=== PATIENT | female | born 1955 | race Caucasian/White ===

== ENCOUNTER 2016-04-12 21:46 | Emergency (ER) | payer MEDICARE, MEDICAID ==
--- NOTE | 2016-04-12 21:57 | Emergency Department Record ---
History of Present Illness - General Stated Complaint: HEAD/NECK PAIN Time Seen by Provider: 04/12/16 21:50 Source: Patient, EMS Mode of Arrival: EMS Limitations: No limitations - History of Present Illness Initial Comments: 61 yo female presents with neck and back pain. No report of recent falls or injury. She reports as does EMS that she has had many months of chronic neck and back pain. No recent illness. No cough or congestion. No weakness. She denies any numbness. She denies an history of surgery. No vomiting or diarrhea. [facility] of no trauma, chronic in nature and not recent illness. MD Complaint: Back pain, Other (Neck pain) -: Month(s) Place: Home Radiation: None Severity: Moderate Quality: Aching Consistency: Constant Improves With: Immobilization, Movement Worsens With: Movement Context: Other (chronic pain) - Related Data Home Medications Medication Instructions Recorded Confirmed Last Taken Triamterene/Hydrochlorothiazid 75 mg PO DAILY 12/30/13 12/28/15 1 Day Ago [Maxzide 37.5 mg-25 mg Tablet] Acetaminophen [Arthritis Pain] 650 mg PO Q12H PRN 10/16/14 12/28/15 1 Day Ago Amlodipine Besylate [Norvasc] 10 mg PO DAILY 11/14/15 12/28/15 1 Day Ago Cholecalciferol (Vitamin D3) 2,000 unit PO DAILY 11/14/15 12/28/15 1 Day Ago [Vitamin D3] Divalproex Sodium [Depakote] 750 mg PO DAILY 11/14/15 12/28/15 1 Day Ago Gabapentin [Neurontin] 300 mg PO BID 11/14/15 12/28/15 1 Day Ago Metoprolol Succinate 12.5 mg PO DAILY 11/14/15 12/28/15 1 Day Ago Olanzapine 10 mg PO DAILY 11/14/15 12/28/15 1 Day Ago Trazodone HCl 100 mg PO QHS 11/14/15 12/28/15 1 Day Ago Olanzapine [Olanzapine Odt] 5 mg PO QAM 11/22/15 11/22/15 1 Day Ago Allergies Allergy/AdvReac Type Severity Reaction Status Date / Time No Known Drug Allergies Allergy Verified 12/28/15 14:46 Review of Systems Constitutional: Denies: Chills, Fever, Weakness Eyes: Denies: Eye discharge ENT: Denies: Congestion Respiratory: Denies: Cough Cardiovascular: Denies: Chest pain, Palpitations, Syncope Endocrine: Denies: Fatigue Gastrointestinal: Denies: Abdominal pain, Diarrhea, Nausea, Vomiting Genitourinary: Denies: Dysuria Musculoskeletal: Reports: As per HPI, Arthralgia, Back pain, Myalgia, Neck pain Skin: Denies: Bruising, Change in color, Rash Neurological: Denies: Confusion, Headache Psychiatric: Denies: Anxiety Hematological/Lymphatic: Denies: Blood Clots, Easy bleeding, Easy bruising, Swollen glands Past Medical History - SOCIAL HISTORY Smoking Status: Current every day smoker Drug Use: None - RESPIRATORY Hx Respiratory Disorders: Yes Hx Bronchitis: Yes Hx COPD: Yes - CARDIOVASCULAR Hx Cardio Disorders: Yes Hx Heart Attack: Yes (x 2) Hx Hypertension: Yes - NEURO Hx Neuro Disorders: Yes Comment:: legally blind - GI Hx GI Disorders: No - Hx Genitourinary Disorders: Yes Comment:: urinary incont - ENDOCRINE Hx Endocrine Disorders: No - MUSCULOSKELETAL Hx Musculoskeletal Disorders: Yes Hx Arthritis: Yes - PSYCH Hx Psych Problems: Yes Comment:: schizophrenia - HEMATOLOGY/ONCOLOGY Hx Hematology/Oncology Disorders: No Family Medical History Hx Cancer: Grandparents Physical Exam - General General Appearance: Alert, Oriented x3, Cooperative Limitations: No limitations - Head Head exam: Atraumatic, Normocephalic, Normal inspection - Eye Eye exam: Normal appearance, PERRL. negative: Conjunctival injection, Periorbital swelling - ENT ENT exam: Normal exam, Mucous membranes moist Ear exam: Normal external inspection Nasal Exam: Normal inspection Mouth exam: Normal external inspection Teeth exam: Normal inspection Throat exam: Normal inspection - Neck Neck exam: Normal inspection, Full ROM, Tenderness (mild diffuse, no focal, chronic neck/head position is flexed). negative: Lymphadenopathy, Meningismus - Respiratory Respiratory exam: Normal lung sounds bilaterally. negative: Respiratory distress - Cardiovascular Cardiovascular Exam: Regular rate, Normal rhythm, Normal heart sounds - GI/Abdominal GI/Abdominal exam: Soft. negative: Tenderness - Rectal Rectal exam: Deferred - exam: Deferred - Extremities Extremities exam: Normal inspection, Full ROM, Normal capillary refill. negative: Tenderness - Back Back exam: Reports: Normal inspection, Full ROM, Other (no rash). Denies: CVA tenderness (R), CVA tenderness (L), Muscle spasm, Paraspinal tenderness, Tenderness, Vertebral tenderness - Neurological Neurological exam: Alert, Normal gait, Oriented X3 - Psychiatric Psychiatric exam: Normal affect, Normal mood. negative: Agitated, Anxious - Skin Skin exam: Dry, Intact, Normal color, Warm Course - Reevaluation(s) Reevaluation #1: the patient was seen on arrival with EMS History taken from EMS as well 04/12/16 21:57 Reevaluation #2: vitals reviewed No acute changes 04/12/16 21:57 Reevaluation #3: UA is negative for any infection XR of the C spine were reviewed. Awaiting final report 04/12/16 22:29 Reevaluation #4: XR demonstrated degenerative changes 04/12/16 22:47 Disposition Disposition: Discharge Clinical Impression: Neck pain, chronic Lumbar back pain Qualifiers: Chronicity: chronic Back pain laterality: unspecified Sciatica presence: without sciatica Qualified Code(s): M54.5 - Low back pain Disposition: Home, Self-Care Condition: (1) Good Instructions: Cervical Spine Strain (ED) Additional Instructions: Call your doctor to be seen first of the week for your neck and back pain Time of Disposition: 22:48
[2016-04-12 22:13] LABS: URINE APPEARANCE CLEAR; URINE BILIRUBIN NEGATIVE (NEGATIVE); URINE BLOOD NEGATIVE (NEGATIVE); URINE COLOR YELLOW; URINE GLUCOSE (UA) NEGATIVE (NEGATIVE); URINE KETONE NEGATIVE (NEGATIVE); URINE LEUKOCYTE ESTERASE NEGATIVE (NEGATIVE); URINE NITRITE NEGATIVE (NEGATIVE); URINE PROTEIN NEGATIVE (NEGATIVE); URINE UROBILINOGEN 0.2 E.U./dL (0.20 - 1.00)
--- NOTE | 2016-04-18 10:16 | RADIOLOGY REPORT ---
EXAM: CERVICAL SPINE HISTORY: INJURY. TECHNIQUE: AP, lateral, and open mouth views of the cervical spine were performed. FINDINGS: There is severe osteopenia. There is minimal anterolisthesis of C4 in respect to C5. The lateral masses are well aligned. There is multilevel facet arthropathy. IMPRESSION: SEVERE OSTEOPENIA WITH MULTILEVEL FACET ARTHROPATHY. THERE IS ANTEROLISTHESIS OF C4 IN RESPECT TO C5. THIS IS LIKELY ON A DEGENERATIVE BASIS. J[facility]BER: [id number] [facility]
== END 2016-04-12 23:04 | disposition home or self-care (01) ==
LOC: ER 21:46
DX: M54.2 Cervicalgia (principal); G89.29 Other chronic pain; M54.5 Low back pain
CPT/HCPCS: 72040; 81003; 99283; 99284

== ENCOUNTER 2016-06-14 09:05 | Emergency (ER) | payer MEDICARE, MEDICAID ==
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
[2016-06-14 09:42] LABS: BASO % 0.4 % (0-6); EOS % 3.1 % (0-6); GRAN % 47.1 % (47-80); HEMATOCRIT 40.2 % (35.0-47.0); HEMOGLOBIN 13.3 gm/dl (11.6-16.0); LYMPH % 35.5 % (16-45); MEAN CELL VOLUME 95.9 fl (81-97); MEAN CORPUSCULAR HEMOGLOBIN 31.7 pg (27-33); MEAN CORPUSCULAR HGB CONC 33.1 g/dl (32-36); MEAN PLATELET VOLUME 9.5 fl (7.4-10.4); MONO % 13.9 % (0-9); PLATELET COUNT 241 K/uL (130-400); RED BLOOD COUNT 4.19 M/uL (3.80-5.40); RED CELL DISTRIBUTION WIDTH 13.8 % (11.5-14.5); WHITE BLOOD COUNT W/O DIFF 5.6 K/uL (4.2-12.2)
[2016-06-14 09:52] LABS: ALB/GLOB RATIO 1.1 (1.1-1.8); ALBUMIN 3.9 gm/dL (3.5-5.0); ALKALINE PHOSPHATASE 68 U/L (38-126); ALT/SGPT 27 U/L (9-52); AST/SGOT 24 U/L (14-36); BILIRUBIN,TOTAL 0.35 mg/dL (0.2-1.3); BLOOD UREA NITROGEN 25 mg/dL (7-17); CREATININE 0.9 mg/dL (0.52-1.04); EST GLOMERULAR FILTRATION RATE > 60 ml/min; GLUCOSE,RANDOM 71 mg/dL (70-110); TOTAL PROTEIN 7.6 gm/dL (6.3-8.2)
[2016-06-14 09:58] LABS: VALPROIC ACID (DEPAKENE) 56.5 ug/mL (50.0-100.0)
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
== END 2016-06-14 11:10 | disposition home or self-care (01) ==
LOC: ER 09:05
DX: S00.12XA Contusion of left eyelid and periocular area, initial encounter (principal); F20.9 Schizophrenia, unspecified; I10 Essential (primary) hypertension; J44.9 Chronic obstructive pulmonary disease, unspecified; I25.2 Old myocardial infarction; F17.210 Nicotine dependence, cigarettes, uncomplicated; W05.0XXA Fall from non-moving wheelchair, initial encounter; Y92.129 Unspecified place in nursing home as the place of occurrence of the external cause
CPT/HCPCS: 70450; 80053; 80164; 85025; 99283; 99284

== ENCOUNTER 2016-07-05 11:31 | Emergency (ER) | payer MEDICARE, MEDICAID ==
[2016-07-05] MEDS ORDERED: 0.9 % SODIUM CHLORIDE 1,000 ML BAG IV ONE (11:44)
--- NOTE | 2016-07-05 11:52 | Emergency Department Record ---
History of Present Illness - General Chief complaint: Fatigue and Weakness Stated complaint: NOT EATING OR DRINKING Time Seen by Provider: 07/05/16 11:42 Source: Patient, EMS Mode of Arrival: EMS Limitations: No limitations - History of Present Illness Initial comments: The patient is here from an [facility] home due to generalized weakness for 2 days. The caregiver that is here states the patient has not been eating or drinking for 2 days. The patient has an extensive psych. hx and is on multiple medicines to control her behavior. The caregiver does not know if any have been adjusted recently. MD Complaint: Generalized weakness Onset/Timin -: Days(s) Location: Generalized Severity: Mild Improves with: None Worsens with: None Associated Symptoms: Loss of appetite - [place] Coma Scale Eye Response: (3) Open to voice Motor Response: (6) Obeys commands Verbal Response: (4) Confused conversation Felipe Total: 13 - Related Data Home Medications Medication Instructions Recorded Confirmed Last Taken Triamterene/Hydrochlorothiazid 75 mg PO DAILY 12/30/13 07/05/16 06/14/16 [Maxzide 37.5 mg-25 mg Tablet] Acetaminophen [Arthritis Pain] 650 mg PO Q12H PRN 10/16/14 07/05/16 06/14/16 Amlodipine Besylate [Norvasc] 10 mg PO DAILY 11/14/15 07/05/16 06/14/16 Cholecalciferol (Vitamin D3) 2,000 unit PO DAILY 11/14/15 07/05/16 06/14/16 [Vitamin D3] Divalproex Sodium [Depakote] 750 mg PO DAILY 11/14/15 07/05/16 06/14/16 Gabapentin [Neurontin] 300 mg PO BID 11/14/15 07/05/16 06/14/16 Metoprolol Succinate 12.5 mg PO DAILY 11/14/15 07/05/16 06/14/16 Olanzapine 10 mg PO DAILY 11/14/15 07/05/16 06/14/16 Trazodone HCl 100 mg PO QHS 11/14/15 07/05/16 06/14/16 Olanzapine [Olanzapine Odt] 5 mg PO QAM 11/22/15 07/05/16 06/14/16 Allergies Allergy/AdvReac Type Severity Reaction Status Date / Time No Known Drug Allergies Allergy Verified 07/05/16 11:38 Travel Screening - Travel/Exposure Within Last 30 Days Have you traveled within the last 30 days?: No Review of Systems Constitutional: Denies: Chills, Fever Eyes: Denies: Eye discharge ENT: Denies: Congestion Respiratory: Denies: Cough, Dyspnea Past Medical History - SOCIAL HISTORY Smoking Status: Current every day smoker Alcohol Use: None Drug Use: None - RESPIRATORY Hx Respiratory Disorders: Yes Hx Bronchitis: Yes Hx COPD: Yes - CARDIOVASCULAR Hx Cardio Disorders: Yes Hx Heart Attack: Yes (x 2) Hx Hypertension: Yes - NEURO Hx Neuro Disorders: Yes Comment:: legally blind - GI Hx GI Disorders: No - Hx Genitourinary Disorders: Yes Comment:: urinary incont - ENDOCRINE Hx Endocrine Disorders: No - MUSCULOSKELETAL Hx Musculoskeletal Disorders: Yes Hx Arthritis: Yes - PSYCH Hx Psych Problems: Yes Comment:: schizophrenia - HEMATOLOGY/ONCOLOGY Hx Hematology/Oncology Disorders: No Family Medical History Any Significant Family History?: Yes Hx Cancer: Grandparents Physical Exam - General General Appearance: No acute distress - Head Head exam: Normal inspection - ENT Throat exam: negative: Normal inspection (slightl dry mucosa.) - Neck Neck exam: Normal inspection, Full ROM. negative: Tenderness - Respiratory Respiratory exam: Normal lung sounds bilaterally. negative: Respiratory distress - Cardiovascular Cardiovascular Exam: Regular rate, Normal rhythm, Normal heart sounds - Extremities Extremities exam: negative: Normal inspection - Neurological Neurological exam: negative: Alert, Motor sensory deficit, Oriented X3 (The patient is sleepy but arousable to voice. She is complaining about her "scars" but will not answer questions.) Course Vital Signs 07/05/16 11:34 Temperature 97.1 F L Pulse Rate 63 Respiratory 20 Rate Blood Pressure 119/76 Pulse Ox 95 - Reevaluation(s) Reevaluation #1: The patient is doing much better now. She is up awake and alert and went to use the bedside cammode normally. I did explain to the caregiver that I do believe the patient may be slightly overmedicated and will need her psych. medicines slightly lowered. 07/05/16 12:50 Medical Decision Making - Data Complexity MDM Data: Labs Ordered and/or Reviewed, X-Ray Ordered and/or Reviewed - Lab Data Result diagrams: 07/05/16 11:10 07/05/16 11:10 - Radiology Data Radiology results: Report reviewed (Head CT: No acute disease process per Rad.) Disposition Disposition: Discharge Clinical Impression: Weakness Disposition: Home, Self-Care Condition: (1) Good Instructions: Fatigue (ED) Additional Instructions: Please have the patient see her PCP to adjust her psych medicines. Please push PO fluids. Please return to the ER for any problems. Forms: Patient Portal Access Time of Disposition: 12:52
[2016-07-05 11:55] LABS: HEMATOCRIT 41.7 % (35.0-47.0); HEMOGLOBIN 13.7 gm/dl (11.6-16.0); MEAN CELL VOLUME 95.4 fl (81-97); MEAN CORPUSCULAR HEMOGLOBIN 31.4 pg (27-33); MEAN CORPUSCULAR HGB CONC 32.9 g/dl (32-36); MEAN PLATELET VOLUME 10.4 fl (7.4-10.4); PLATELET COUNT 193 K/uL (130-400); RED BLOOD COUNT 4.37 M/uL (3.80-5.40); RED CELL DISTRIBUTION WIDTH 13.3 % (11.5-14.5); WHITE BLOOD COUNT W/O DIFF 5.7 K/uL (4.2-12.2)
[2016-07-05 12:07] LABS: PLATELET ESTIMATE NORMAL (NORMAL)
[2016-07-05 12:12] LABS: ANION GAP 9.4 (7-16); BILIRUBIN,TOTAL 0.61 mg/dL (0.2-1.3); CARBON DIOXIDE 35.6 mmol/L (22-30); TOTAL PROTEIN 8.2 gm/dL (6.3-8.2)
== END 2016-07-05 13:40 | disposition home or self-care (01) ==
LOC: ER 11:31
DX: R53.1 Weakness (principal); R41.82 Altered mental status, unspecified; J44.9 Chronic obstructive pulmonary disease, unspecified; I10 Essential (primary) hypertension; I25.2 Old myocardial infarction; F20.9 Schizophrenia, unspecified; F17.200 Nicotine dependence, unspecified, uncomplicated
CPT/HCPCS: 70450; 80053; 80164; 85027; 96360; 99284; J7030

== ENCOUNTER 2016-08-30 18:55 | Emergency (ER) | payer MEDICARE, MEDICAID ==
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
== END 2016-08-30 20:53 | disposition home or self-care (01) ==
LOC: ER 18:55
DX: S16.1XXA Strain of muscle, fascia and tendon at neck level, initial encounter (principal); Y08.89XA Assault by other specified means, initial encounter; Y93.9 Activity, unspecified; Y92.009 Unspecified place in unspecified non-institutional (private) residence as the place of occurrence of the external cause; F17.200 Nicotine dependence, unspecified, uncomplicated; F20.9 Schizophrenia, unspecified
CPT/HCPCS: 70450; 72125; 99283

== ENCOUNTER 2017-04-04 13:48 | Emergency (ER) | payer MEDICARE, MEDICAID ==
--- NOTE | 2017-04-04 14:35 | Emergency Department Record ---
History of Present Illness - General Chief Complaint: Altered Mental Status Stated Complaint: ALTERED MENTAL STATE Time Seen by Provider: 04/04/17 14:16 Source: Patient Mode of Arrival: EMS Limitations: No limitations - History of Present Illness Initial Comments: The patient is here from foster care due to being more sleepy than normal. She lives at the [facility] assisted living home and a caregiver that is here today states she has not been herself. He states she usually is able to hold her own coffee cup but today has been dropping it and then wants to go to sleep. There is no hx of trauma, injury, fall, recent illness, or fever. The caregiver denies any recent medicine change. She has had similar issues in the past when she has had side effects of her multiple medicines. MD Complaint: Decreased responsiveness Onset/Timin -: Days(s) Consistency: Constant - [place] Coma Scale Eye Response: (4) Open spontaneously Motor Response: (6) Obeys commands Verbal Response: (5) Oriented Felipe Total: 15 - Related Data Home Medications Medication Instructions Recorded Confirmed Last Taken Escitalopram Oxalate [Lexapro] 20 mg PO 04/04/17 04/04/17 Allergies Allergy/AdvReac Type Severity Reaction Status Date / Time No Known Drug Allergies Allergy Verified 08/30/16 19:04 Travel Screening - Travel/Exposure Within Last 30 Days Have you traveled within the last 30 days?: No - Travel/Exposure Within Last Year Have you traveled outside the [place] in the last year?: No - Additonal Travel Details Have you been exposed to anyone with a communicable illness?: No Review of Systems Constitutional: Denies: Chills, Fever Eyes: Denies: Eye discharge ENT: Denies: Congestion Respiratory: Denies: Cough, Dyspnea Past Medical History - SOCIAL HISTORY Smoking Status: Current every day smoker Alcohol Use: None Drug Use: None - RESPIRATORY Hx Respiratory Disorders: Yes Hx Bronchitis: Yes Hx COPD: Yes - CARDIOVASCULAR Hx Cardio Disorders: Yes Hx Heart Attack: Yes (x 2) Hx Hypertension: Yes - NEURO Hx Neuro Disorders: Yes Comment:: legally blind - GI Hx GI Disorders: No - Hx Genitourinary Disorders: Yes Comment:: urinary incont - ENDOCRINE Hx Endocrine Disorders: No - MUSCULOSKELETAL Hx Musculoskeletal Disorders: Yes Hx Arthritis: Yes - PSYCH Hx Psych Problems: Yes Comment:: schizophrenia - HEMATOLOGY/ONCOLOGY Hx Hematology/Oncology Disorders: No Family Medical History Any Significant Family History?: No Hx Cancer: Grandparents Physical Exam - General General Appearance: Alert, Cooperative, No acute distress - Head Head exam: Atraumatic, Normocephalic - Eye Eye exam: Normal appearance - ENT Throat exam: Normal inspection. negative: Tonsillar erythema, Tonsillar exudate - Neck Neck exam: Normal inspection, Full ROM. negative: Tenderness - Respiratory Respiratory exam: Normal lung sounds bilaterally. negative: Respiratory distress - Cardiovascular Cardiovascular Exam: Regular rate, Normal rhythm, Normal heart sounds - GI/Abdominal GI/Abdominal exam: Soft, Normal bowel sounds. negative: Tenderness - Extremities Extremities exam: negative: Normal inspection (no change from normal.) - Neurological Neurological exam: Alert. negative: Motor sensory deficit, Oriented X3 (The patient is oriented to name, place but no date.) Course Vital Signs 04/04/17 14:07 Temperature 97.8 F Pulse Rate 62 Respiratory 16 Rate Blood Pressure 103/66 Pulse Ox 94 L - Reevaluation(s) Reevaluation #1: The patient is doing better at this time. She is now up in the wheelchair yelling at us and wanting to go home. She is clearly back to her normal self. The caregiver was encouraged to possibly lower the nighttime dose of Ativan. 04/04/17 15:31 Medical Decision Making - Lab Data Result diagrams: 04/04/17 14:35 04/04/17 14:35 Disposition Disposition: Discharge Clinical Impression: Weakness generalized Disposition: Home, Self-Care Condition: (2) Stable Instructions: Altered Mental Status (ED) Additional Instructions: Please continue the regular medicines and possible lower the nighttime Ativan. Please see your PCP next week and return to the ER for any worsening symptoms. Forms: Patient Portal Access Time of Disposition: 15:30 Quality - Quality Measures Quality Measures: N/A - Blood Pressure Screening View Details: Yes Does Patient Have Any of the Following: No Blood Pressure Classification: Normal BP Reading Systolic Measurement: 103 Diastolic Measurement: 66 Screening for High Blood Pressure: < Normal BP, F/U Not Required > [G8783]
[2017-04-04 14:42] LABS: BASO % 0.3 % (0-6); EOS % 3.9 % (0-6); GRAN % 42.4 % (47-80); HEMATOCRIT 42.9 % (35.0-47.0); HEMOGLOBIN 14.5 gm/dl (11.6-16.0); LYMPH % 41.3 % (16-45); MEAN CELL VOLUME 93.5 fl (81-97); MEAN CORPUSCULAR HEMOGLOBIN 31.6 pg (27-33); MEAN CORPUSCULAR HGB CONC 33.8 g/dl (32-36); MEAN PLATELET VOLUME 8.5 fl (7.4-10.4); MONO % 12.1 % (0-9); PLATELET COUNT 245 K/uL (130-400); RED BLOOD COUNT 4.59 M/uL (3.80-5.40); RED CELL DISTRIBUTION WIDTH 12.5 % (11.5-14.5); URINE APPEARANCE CLEAR; URINE BILIRUBIN NEGATIVE (NEGATIVE); URINE BLOOD NEGATIVE (NEGATIVE); URINE COLOR YELLOW; URINE GLUCOSE (UA) NEGATIVE (NEGATIVE); URINE KETONE NEGATIVE (NEGATIVE); URINE LEUKOCYTE ESTERASE NEGATIVE (NEGATIVE); URINE NITRITE NEGATIVE (NEGATIVE); URINE PROTEIN NEGATIVE (NEGATIVE); URINE UROBILINOGEN 0.2 E.U./dL (0.20 - 1.00); WHITE BLOOD COUNT W/O DIFF 6.2 K/uL (4.2-12.2)
[2017-04-04 15:19] LABS: BLOOD UREA NITROGEN 18 mg/dL (8-23); CREATININE 0.7 mg/dL (0.5-0.9); EST GLOMERULAR FILTRATION RATE > 60 mL/min
[2017-04-04 15:20] LABS: TOTAL PROTEIN 7.5 g/dL (6.6-8.7)
[2017-04-04 15:22] LABS: GLUCOSE,RANDOM 67 mg/dL (74-109)
[2017-04-04 15:25] LABS: ALBUMIN 3.7 g/dL (4.0-5.0); ALKALINE PHOSPHATASE 57 U/L (35-104); ALT/SGPT 11 U/L (<33); AST/SGOT 19 U/L (10.0-35.0); VALPROIC ACID (DEPAKENE) 68.1 ug/mL (50.0-100.0)
== END 2017-04-04 15:53 | disposition home or self-care (01) ==
LOC: ER 13:48
DX: R53.1 Weakness (principal); R41.82 Altered mental status, unspecified; I10 Essential (primary) hypertension; I25.2 Old myocardial infarction; F17.210 Nicotine dependence, cigarettes, uncomplicated; F20.9 Schizophrenia, unspecified
CPT/HCPCS: 80053; 80164; 81003; 85025; 99283

== ENCOUNTER 2018-01-02 08:46 | Emergency (ER) | payer MEDICARE, MEDICAID ==
--- NOTE | 2018-01-02 09:05 | Emergency Department Record ---
History of Present Illness - General Chief complaint: Extremity Problem Stated complaint: LEFT HAND INJURY Time Seen by Provider: 01/02/18 08:53 Source: Veterinary Medicine Teacher (caregiver), Old records reviewed Mode of Arrival: Wheelchair Limitations: Altered mental status, Physical limitation - History of Present Illness Initial comments: The patient was brought in by her caregiver because of a bruised left hand. She is not sure how she got it, but wants it checked out. The patient has been up all night which she often does, and now she is sleeping on the cart, snoring with a biox of 88 on RA. Caregiver states she is a chronic smoker who chronicallly coughs up yellow sputum. She has no known fevers, denies shortness of breath or chest pain, abdominal pain or other complaints. -: Unknown Location: Left - Related Data Allergies Allergy/AdvReac Type Severity Reaction Status Date / Time No Known Drug Allergies Allergy Verified 08/30/16 19:04 Travel Screening - Travel/Exposure Within Last 30 Days Have you traveled within the last 30 days?: No - Travel/Exposure Within Last Year Have you traveled outside the [place] in the last year?: No - Additonal Travel Details Have you been exposed to anyone with a communicable illness?: No - Travel Symptoms Symptom Screening: None Review of Systems Reviewed: No additional complaints except as noted below Constitutional: Reports: As per HPI. Denies: Chills, Fever, Malaise, Night sweats, Weakness, Weight change Eyes: Reports: As per HPI. Denies: Eye discharge, Eye pain, Photophobia, Vision change ENT: Reports: As per HPI. Denies: Congestion, Dental pain, Ear pain, Epistaxis , Hearing loss, Throat pain Respiratory: Reports: As per HPI. Denies: Cough, Dyspnea, Hemoptysis, Stridor, Wheezes Cardiovascular: Reports: As per HPI. Denies: Arrhythmia, Chest pain, Dyspnea on exertion, Edema, Murmurs, Orthopnea, Palpitations, Paroxysmal nocturnal dyspnea, Rheumatic Fever, Syncope Endocrine: Reports: As per HPI. Denies: Fatigue, Heat or cold intolerance, Polydipsia, Polyuria Gastrointestinal: Reports: As per HPI. Denies: Abdominal pain, Constipation, Diarrhea, Hematemesis, Hematochezia, Melena, Nausea, Vomiting Genitourinary: Reports: As per HPI. Denies: Abnormal menses, Discharge, Dyspareunia, Dysuria, Frequency, Hematuria, Incontinence, Retention, Urgency Musculoskeletal: Reports: As per HPI. Denies: Arthralgia, Back pain, Gout, Joint swelling, Myalgia, Neck pain Skin: Reports: As per HPI. Denies: Bruising, Change in color, Change in hair/ nails, Lesions, Pruritus, Rash Neurological: Reports: As per HPI. Denies: Abnormal gait, Confusion, Headache, Numbness, Paresthesias, Seizure, Tingling, Tremors, Vertigo, Weakness Psychiatric: Reports: As per HPI. Denies: Anxiety, Auditory hallucinations, Depression, Homicidal thoughts, Suicidal thoughts, Visual hallucinations Hematological/Lymphatic: Reports: As per HPI. Denies: Anemia, Blood Clots, Easy bleeding, Easy bruising, Swollen glands Past Medical History - SOCIAL HISTORY Smoking Status: Current every day smoker Alcohol Use: None Drug Use: None - RESPIRATORY Hx Respiratory Disorders: Yes Hx Bronchitis: Yes Hx COPD: Yes - CARDIOVASCULAR Hx Cardio Disorders: Yes Hx Heart Attack: Yes (x 2) Hx Hypertension: Yes - NEURO Hx Neuro Disorders: Yes Comment:: legally blind - GI Hx GI Disorders: No Hx Hepatitis/Jaundice: Yes - Hx Genitourinary Disorders: Yes Comment:: urinary incont - ENDOCRINE Hx Endocrine Disorders: No - MUSCULOSKELETAL Hx Musculoskeletal Disorders: Yes Hx Arthritis: Yes - PSYCH Hx Psych Problems: Yes Comment:: schizophrenia - HEMATOLOGY/ONCOLOGY Hx Hematology/Oncology Disorders: No Family Medical History Any Significant Family History?: No Hx Cancer: Grandparents Physical Exam - General General Appearance: Alert, Cooperative, No acute distress (patient arrived and fell asleep on cart, unable to assess orientation) Limitations: Physical limitation - Head Head exam: Atraumatic, Normal inspection - Eye Eye exam: Normal appearance, PERRL, EOMI, Other (patient is blind). negative: Conjunctival injection Pupils: Normal accommodation - ENT ENT exam: Normal exam, Mucous membranes moist, Normal external ear exam, Normal orophraynx, TM's normal bilaterally Ear exam: Normal external inspection. negative: External canal tenderness Nasal Exam: Normal inspection. negative: Discharge, Sinus tenderness Mouth exam: Normal external inspection, Tongue normal Teeth exam: Normal inspection. negative: Dental caries Throat exam: Normal inspection. negative: Tonsillar erythema, Tonsillar exudate - Neck Neck exam: Normal inspection, Full ROM. negative: Lymphadenopathy, Meningismus , Tenderness - Respiratory Respiratory exam: Normal lung sounds bilaterally, Other (chronic chest congestion). negative: Respiratory distress - Cardiovascular Cardiovascular Exam: Regular rate, Normal rhythm, Normal heart sounds - GI/Abdominal GI/Abdominal exam: Soft, Normal bowel sounds. negative: Tenderness - Rectal Rectal exam: Deferred - exam: Deferred - Extremities Extremities exam: Normal inspection, Full ROM, Normal capillary refill, Tenderness (ecchymosis with diffuse tenderness over dorsal left hand metacarpals with diffuse digit swelling, no cellulitis. ). negative: Calf tenderness, Pedal edema - Back Back exam: Reports: Normal inspection, Full ROM. Denies: CVA tenderness (R), CVA tenderness (L), Muscle spasm, Rash noted, Tenderness - Neurological Neurological exam: Alert, Reflexes normal, Other (multiple chronic abnormalities at baseline) - Psychiatric Psychiatric exam: Normal affect, Normal mood - Skin Skin exam: Dry, Intact, Normal color, Warm Course Vital Signs 01/02/18 08:51 Pulse Rate 64 Respiratory 18 Rate Blood Pressure 123/84 - Reevaluation(s) Reevaluation #1: Initial biox showed hypoxia, however after attempting biox on her ear it was 95 % RA 01/02/18 09:19 Medical Decision Making - Management Options MDM Management: No Additional Work-up Planned - Data Complexity MDM Data: X-Ray Ordered and/or Reviewed (Left Hand xray:STS dorsal aspect of hand, NO acute fracture; numerous chronic changes including arthritic changes at multiple sites. See dictated report. Per radiologist) Disposition Disposition: Discharge Clinical Impression: Hand injury Qualifiers: Encounter type: initial encounter Laterality: left Qualified Code(s): S69.92XA - Unspecified injury of left wrist, hand and finger(s), initial encounter Disposition: Home, Self-Care Condition: (1) Good Instructions: Hand Sprain (ED), Hematoma (ED) Additional Instructions: Ice to contusion first 48 hours. Pedro wrap hand for comfort. Tylenol alternated with ibuprofen as needed as directed for pain. Follow up with PCP for recheck 5-7 days. Forms: Patient Portal Access Quality - Quality Measures Quality Measures: N/A - Blood Pressure Screening Does Patient Have Any of the Following: No Blood Pressure Classification: Pre-Hypertensive BP Reading Systolic Measurement: 123 Diastolic Measurement: 84 Screening for High Blood Pressure: < Normal BP, F/U Not Required > [G4303]
--- NOTE | 2018-01-02 09:24 | Emergency Department Record ---
History of Present Illness - General Chief complaint: Extremity Problem Stated complaint: LEFT HAND INJURY Time Seen by Provider: 01/02/18 08:53 - History of Present Illness Initial comments: Caregiver brought patient by wheelchair due to a bruise on her hand from an unknown cause. The patient is otherwise acting at her baseline behavior. - Related Data Allergies Allergy/AdvReac Type Severity Reaction Status Date / Time No Known Drug Allergies Allergy Verified 08/30/16 19:04 Review of Systems Reviewed: No additional complaints except as noted below Constitutional: Reports: As per HPI. Denies: Chills, Fever, Malaise, Night sweats, Weakness, Weight change Eyes: Reports: As per HPI. Denies: Eye discharge, Eye pain, Photophobia, Vision change ENT: Reports: As per HPI. Denies: Congestion, Dental pain, Ear pain, Epistaxis , Hearing loss, Throat pain Respiratory: Reports: As per HPI. Denies: Cough, Dyspnea, Hemoptysis, Stridor, Wheezes Cardiovascular: Reports: As per HPI. Denies: Arrhythmia, Chest pain, Dyspnea on exertion, Edema, Murmurs, Orthopnea, Palpitations, Paroxysmal nocturnal dyspnea, Rheumatic Fever, Syncope Endocrine: Reports: As per HPI. Denies: Fatigue, Heat or cold intolerance, Polydipsia, Polyuria Gastrointestinal: Reports: As per HPI. Denies: Abdominal pain, Constipation, Diarrhea, Hematemesis, Hematochezia, Melena, Nausea, Vomiting Genitourinary: Reports: As per HPI. Denies: Abnormal menses, Discharge, Dyspareunia, Dysuria, Frequency, Hematuria, Incontinence, Retention, Urgency Musculoskeletal: Reports: As per HPI. Denies: Arthralgia, Back pain, Gout, Joint swelling, Myalgia, Neck pain Skin: Reports: As per HPI. Denies: Bruising, Change in color, Change in hair/ nails, Lesions, Pruritus, Rash Neurological: Reports: As per HPI. Denies: Abnormal gait, Confusion, Headache, Numbness, Paresthesias, Seizure, Tingling, Tremors, Vertigo, Weakness Psychiatric: Reports: As per HPI. Denies: Anxiety, Auditory hallucinations, Depression, Homicidal thoughts, Suicidal thoughts, Visual hallucinations Hematological/Lymphatic: Reports: As per HPI. Denies: Anemia, Blood Clots, Easy bleeding, Easy bruising, Swollen glands Past Medical History - SOCIAL HISTORY Smoking Status: Current every day smoker Drug Use: None - RESPIRATORY Hx Respiratory Disorders: Yes Hx Bronchitis: Yes Hx COPD: Yes - CARDIOVASCULAR Hx Cardio Disorders: Yes Hx Heart Attack: Yes (x 2) Hx Hypertension: Yes - NEURO Hx Neuro Disorders: Yes Comment:: legally blind - GI Hx GI Disorders: No - Hx Genitourinary Disorders: Yes Comment:: urinary incont - ENDOCRINE Hx Endocrine Disorders: No - MUSCULOSKELETAL Hx Musculoskeletal Disorders: Yes Hx Arthritis: Yes - PSYCH Hx Psych Problems: Yes Comment:: schizophrenia - HEMATOLOGY/ONCOLOGY Hx Hematology/Oncology Disorders: No Family Medical History Hx Cancer: Grandparents Physical Exam - General General Appearance: Alert, Cooperative, No acute distress, Other (falling asleep on cart ) - Head Head exam: Normal inspection - Eye Eye exam: Normal appearance, PERRL Pupils: Normal accommodation - ENT ENT exam: Normal exam, Mucous membranes moist, Normal external ear exam, Normal orophraynx, TM's normal bilaterally Ear exam: Normal external inspection. negative: External canal tenderness Nasal Exam: Normal inspection. negative: Discharge, Sinus tenderness Mouth exam: Normal external inspection, Tongue normal Teeth exam: Normal inspection. negative: Dental caries Throat exam: Normal inspection. negative: Tonsillar erythema, Tonsillar exudate - Neck Neck exam: Normal inspection, Full ROM. negative: Tenderness - Respiratory Respiratory exam: Normal lung sounds bilaterally. negative: Respiratory distress - Cardiovascular Cardiovascular Exam: Regular rate, Normal rhythm, Normal heart sounds - GI/Abdominal GI/Abdominal exam: Soft, Normal bowel sounds. negative: Tenderness - Rectal Rectal exam: Deferred - exam: Deferred - Extremities Extremities exam: Normal inspection, Full ROM, Normal capillary refill, Other ( ecchymosis to dorsal aspect of left hand trace of edema to digits). negative: Tenderness - Back Back exam: Reports: Normal inspection, Full ROM. Denies: Muscle spasm, Rash noted, Tenderness - Neurological Neurological exam: Alert, Normal gait, Oriented X3, Reflexes normal - Psychiatric Psychiatric exam: Normal affect, Normal mood - Skin Skin exam: Dry, Intact, Normal color, Warm Medical Decision Making - Data Complexity MDM Data: X-Ray Ordered and/or Reviewed (Left hand xray: Negative for acute fracture; chronic changes, STS noted dorsal hand per radiologist.) Disposition Disposition: Discharge Clinical Impression: Hand injury Qualifiers: Encounter type: initial encounter Laterality: left Qualified Code(s): S69.92XA - Unspecified injury of left wrist, hand and finger(s), initial encounter Disposition: Home, Self-Care Condition: (1) Good Instructions: Hand Sprain (ED), Hematoma (ED) Additional Instructions: Ice to contusion first 48 hours. Pedro wrap hand for comfort. Tylenol alternated with ibuprofen as needed as directed for pain. Follow up with PCP for recheck 5-7 days. Forms: Patient Portal Access Quality - Quality Measures Quality Measures: N/A - Blood Pressure Screening Does Patient Have Any of the Following: No Blood Pressure Classification: Normal BP Reading Systolic Measurement: 100 Diastolic Measurement: 71 Screening for High Blood Pressure: < Normal BP, F/U Not Required > [G8783]
--- NOTE | 2018-01-04 23:02 | RADIOLOGY REPORT ---
EXAM: HAND, LEFT 3 VIEWS HISTORY: BRUISED LEFT HAND, PATIENT CAREGIVER UNSURE OF INJURY, PATIENT APHASIC AND SLEPT THROUGH THE LEFT HAND X-RAY EXAM. TECHNIQUE: Four views left hand. COMPARISON: None. ENCOUNTER: Initial. FINDINGS: There is relatively advanced degenerative arthritis at the IP joint of the thumb and at the IP joints of the index finger. Less prominent degenerative arthritis at several other IP joints. On the lateral view, there is a small bony density along the dorsal aspect of the DIP joint of the index finger. There is no appreciable overlying soft tissue swelling and this is likely chronic, although correlation with point tenderness suggested. There is also a small bony density at the tip of the ulnar styloid and also along the dorsal margin of the wrist, which appear smoothly marginated and probably due to old injury but does not appear acute. Again, correlation with point tenderness would be suggested. Moderate degenerative arthritis at the first CMC articulation. Mild soft tissue swelling overlying the dorsum of the hand at the level of the distal aspects of the metacarpals and MCP joints but no definite fracture in this region identified. IMPRESSION: 1. DEGENERATIVE ARTHRITIS, DETAILED ABOVE. 2. SMALL BUT CHRONIC-APPEARING CALCIFIC DENSITIES LOCATED ALONG THE DORSAL MARGIN OF THE DIP JOINT OF THE INDEX FINGER, ADJACENT TO THE ULNAR STYLOID, AND ALONG THE DORSAL ASPECT OF THE WRIST. THESE MAY BE DUE TO A COMBINATION OF OLD INJURY AND DEGENERATIVE ARTHRITIS, ALTHOUGH CORRELATION WITH POINT TENDERNESS SUGGESTED. 3. SOME SOFT TISSUE SWELLING OVERLYING THE DORSUM OF THE HAND AT THE LEVEL OF THE DISTAL METACARPALS AND MCP JOINTS. JOB NUMBER: [id number] MTDD
== END 2018-01-02 10:20 | disposition home or self-care (01) ==
LOC: ER 08:46
DX: S69.92XA Unspecified injury of left wrist, hand and finger(s), initial encounter (principal); I10 Essential (primary) hypertension; J44.9 Chronic obstructive pulmonary disease, unspecified; F17.210 Nicotine dependence, cigarettes, uncomplicated; I25.2 Old myocardial infarction; X58.XXXA Exposure to other specified factors, initial encounter
CPT/HCPCS: 99283